=== PATIENT | female | born 1980 | race Two or more races ===

== ENCOUNTER 2020-07-16 05:45 | Day surgery (SDC) | payer OTHER ==
[~2020-07-16 05:45] MED LIST: GABAPENTIN600 MG PO; PEPCID AC20 MG PO; PRILOSEC OTC20 MG PO; TAMOXIFEN CITRA20 MG PO; TAMS0.4C PO; ZANTAC150 M3 PO; ZOVIRAX400 MG PO
== END 2020-07-16 11:00 | disposition home or self-care (01) ==
LOC: CIR.AMB 05:45
PROVIDERS: ATTEND Plastic Surgery
DX: C50.911 Malignant neoplasm of unspecified site of right female breast (principal); Z90.11 Acquired absence of right breast and nipple; Z20.822 Contact with and (suspected) exposure to COVID-19
CPT/HCPCS: 19342; C1789; 15771

== ENCOUNTER 2021-01-04 08:50 | Outpatient (CLI) | payer OTHER | END 2021-01-04 09:00 | disposition home or self-care (01) | LOC: MAMO-SONO 08:50 | PROVIDERS: ATTEND Internal Medicine | DX: C50.411 Malignant neoplasm of upper-outer quadrant of right female breast (principal); Z12.31 Encounter for screening mammogram for malignant neoplasm of breast ==

== ENCOUNTER 2022-01-05 09:32 | Outpatient (CLI) | payer OTHER | END 2022-01-05 09:52 | disposition home or self-care (01) | LOC: MAMO-SONO 09:32 | PROVIDERS: ATTEND Internal Medicine | DX: C50.811 Malignant neoplasm of overlapping sites of right female breast (principal) ==

== ENCOUNTER 2022-05-26 05:45 | Day surgery (SDC) | payer OTHER ==
[~2022-05-26] VITALS: Ht 154.9 cm; Wt 113.4 kg
[~2022-05-26 05:45] MED LIST changes: +D3 + K2 DOTS 11 EACH PO; +VITAMIN C250 M1 PO
== END 2022-05-26 16:20 | disposition home or self-care (01) ==
LOC: CIR.AMB 05:45
PROVIDERS: ATTEND Surgery
DX: D48.62 Neoplasm of uncertain behavior of left breast (principal); Z15.01 Genetic susceptibility to malignant neoplasm of breast; Z90.13 Acquired absence of bilateral breasts and nipples; Z80.3 Family history of malignant neoplasm of breast; Z88.0 Allergy status to penicillin; Z88.6 Allergy status to analgesic agent; Z91.040 Latex allergy status; E66.09 Other obesity due to excess calories; Z20.822 Contact with and (suspected) exposure to COVID-19

== ENCOUNTER 2024-01-31 09:31 | Outpatient (CLI) | payer OTHER | END 2024-01-31 09:45 | disposition home or self-care (01) | LOC: SONOGRAMA 09:31 | PROVIDERS: ATTEND Obstetrics & Gynecology | DX: N60.11 Diffuse cystic mastopathy of right breast (principal) ==

== ENCOUNTER 2025-02-05 11:42 | Outpatient (CLI) | payer OTHER | END 2025-02-05 11:48 | disposition home or self-care (01) | LOC: SONOGRAMA 11:42 | PROVIDERS: ATTEND Obstetrics & Gynecology | DX: N60.11 Diffuse cystic mastopathy of right breast (principal) ==